=== PATIENT | female | born 1965 | race Caucasian/White ===

== ENCOUNTER 2017-07-21 19:12 | Emergency (ER) | payer MEDICAID ==
[~2017-07-21] VITALS: Ht 152.4 cm; Wt 89.0 kg
[2017-07-21] MEDS ORDERED: IBUPROFEN 800MG TABLET PO ONE (23:15)
[2017-07-21] MEDS ORDERED: ACETAMINOPHEN WITH CODEINE 300/30MG TABLET PO ONE (23:15)
[2017-07-21 23:30] VITALS: BP 139/88
== END 2017-07-21 23:30 | disposition home or self-care (01) ==
LOC: ER 19:12
DX: M19.90 Unspecified osteoarthritis, unspecified site (principal)
CPT/HCPCS: 73562; 99284